=== PATIENT | male | born 1985 | race Caucasian/White ===

== ENCOUNTER → 2018-02-15 | Outpatient (CLI) | payer OTHER ==
--- NOTE | 2018-02-15 11:39 | FL ---
EXAMINATION TYPE: FL UGI air DATE OF EXAM: 02/15/2018 11:33 AM COMPARISON: NONE CLINICAL HISTORY: R13.10 Dysphagia Upper GI examination was performed according to the air contrast technique. Barium and effervescent crystal was swallowed without difficulty or delay. Esophageal peristalsis and motility are within normal limits. There is apparent luminal narrowing at the C4 level involving the hypopharynx. Direct visualization is recommended. No intraluminal masses s een within the remainder of the esophagus. Small sliding-type hiatal hernia is detected. No evidence for gastroesophageal reflux or esophagitis at this time. The stomach has a normal appearance in terms of its size, shape and location. No gastric filling defects or ulcer craters are seen. The duodena l bulb and sweep are also free of intraluminal lesion or ulcer crater. IMPRESSION: 1.There is apparent luminal narrowing at the C4 level involving the hypopharynx. Direct visualization is recommended. 2.Small sliding-type hiatal hernia is detected.
== END ==
LOC: RADFLWHC 10:41
PROVIDERS: ATTEND Family Medicine
DX: K44.9 Diaphragmatic hernia without obstruction or gangrene (principal)
CPT/HCPCS: 74246

== ENCOUNTER → 2018-03-09 | Outpatient (CLI) | payer OTHER ==
--- NOTE | 2018-03-09 20:09 | CONS ---
CONSULTATION DATE OF SERVICE: 03/09/2018 32-year-old gentleman has been evaluated in [facility] for possible obstructive sleep apnea-hypopnea syndrome and significant excessive daytime sleepiness. HISTORY OF PRESENT ILLNESS/SLEEP WAKE EVALUATION: SLEEP SCHEDULE: Patient recently sleeps from about midnight only until 2:30 a.m. because he started his work very yearly and on his days off, he sleeps from 11:00 p.m. to 8:00 am or even longer to replace his insufficient amount of sleep. DURING SLEEP: He snores. He has loud snoring. He has witnessed episodes of stopped breathing during the sleep. He grinds his teeth, wakes up with dry mouth, panic attacks, restless legs, sweating. DURING THE DAY/SLEEP WAKE EVALUATION: In the morning, he wakes up tired, has difficulties to pay attention, falling asleep during the day, worries about sleep, has problems with memory, concentration, irritability, depression, anxiety, sexual dysfunction. Bell[place] Sleepiness Scale is significantly increased to 19. FALLING ASLEEP: Sometimes he has problem with falling asleep, although no TV in bedroom. He sleeps on the side position. His weight changed significantly, 5 years ago it was around 240 pounds and then he increased to 330 pounds 1 year ago and then he lost down to 240 pounds and then he increased again to 286. He wakes up from sleep every 2 hours and he needs to go to the bathroom. No history of hypnagogic hallucinations, sleep paralysis or cataplexy. PAST MEDICAL HISTORY: Past medical history of back problems, hypertension. MEDICATIONS: Adderall 30 mg daily in the morning and medications for the blood pressure patient does not remember the name. PAST SURGICAL HISTORY: None. SOCIAL HISTORY: Positive for smoking up to 3 packs a day for 25 years. Alcohol consumption occasional. FAMILY HISTORY: Diabetes and cancer. REVIEW OF SYSTEMS: Awakenings from sleep, significant excessive daytime sleepiness. The patient may fall asleep any time and sometimes has history of falling asleep even during conversation. PHYSICAL EXAM: gentleman without distress. BP 152/84, HR 88, RR 16, height 5 feet 9 inches. Weight 285. Body mass index 42. Temperature 97.9. Oxygen saturation room air 97%. HEENT: Oropharynx moderately low position of soft palate. Wide pillars. Neck 19 inches in circumference. ABDOMEN: Obese. Neck Supple, no JVD. Thyroid is not palpable. LUNGS Clear to percussion and to auscultation. Good air exchange. No wheezing or rhonchi. HEART S1, S2 regular. No murmurs, gallops, or rubs. ABDOMEN Soft and nontender. Bowel sounds are present. No organomegaly appreciated. EXTREMITIES No clubbing or cyanosis. COAL SHOVELER Awake, alert, and oriented X3. Cranial nerves 2 to 7 intact. There is no fasciculation or atrophy. noted. No focal deficits observed. IMPRESSION: 1. Snoring, multiple awakenings from sleep, witnessed episodes of stopped breathing during the sleep. Wide neck, sleepiness, obstructive sleep apnea-hypopnea syndrome. 2. Irregular sleep schedule with some nights of insufficient sleep, episodes of severe excessive daytime sleepiness. 3. Severe excessive daytime sleepiness with Bellmore Sleepiness Scale of 19 indicate necessity to include hypersomnia in differential diagnosis. No history of hypnagogic hallucinations. No history of cataplexy. 4. Obesity. 5. Back problems. 6. Hypertension. 7. Smoker for about 75 pack years. PLAN: 1. Polysomnography for evaluation of patient's breathing during sleep. 2. CPAP/BiPAP titration if sleep study confirms obstructive sleep apnea-hypopnea syndrome. 3. Preferable position during sleep on the side. 4. No driving if patient feels any sleepiness. 5. I will see patient for follow up visit to explain results of testing and following plan. Thank you very much for referring this patient for consultation. Sincerely, Jose Miguel Flood MD, PhD, FAASM Diplomat of [place] [employer] [place] [employer] Distribution Associate of [facility] MMODL / IJN: [id number] /
== END ==
LOC: SLEEP 15:28
PROVIDERS: ATTEND Internal Medicine
DX: G47.33 Obstructive sleep apnea (adult) (pediatric) (principal); E66.9 Obesity, unspecified; I10 Essential (primary) hypertension; R29.898 Other symptoms and signs involving the musculoskeletal system; F17.200 Nicotine dependence, unspecified, uncomplicated; Z79.899 Other long term (current) drug therapy
CPT/HCPCS: 99211

== ENCOUNTER → 2018-03-09 | Day surgery (SDC) | payer OTHER ==
[2018-03-07 15:59] VITALS: BMI 39.0
[~2018-03-09] MED LIST: HYDROmorphone 1 MG/ML 1 ML SYRINGE IVP PRN; LACTATED RINGERS 1,000 ML IV SCH; LIDOCAINE 1% 20 ML VIAL (10MG/ML) FOR IV START INTRADERMA PRN; LIDOCAINE 1% INJ 10MG/ML (20 ML MDV) ONE; ONDANSETRON 4 MG/2 ML VIAL IVP PRN; PROPOFOL 10 MG/ML 20 ML VIAL IV ONE; fentaNYL (PF) 50 MCG/ML 2 ML AMP ONE
[2018-03-09 09:18] VITALS: RESP 16; TEMP 98.4
--- NOTE | 2018-03-09 11:00 | P.PCN ---
Date of Procedure: 03/09/18 Procedure(s) Performed: Procedure: Esophagogastroduodenoscopy and biopsy. Preoperative diagnosis: Dysphagia and abnormal upper GI study. Postoperative diagnosis: 1. Small sliding hiatal hernia with no obvious esophagitis or compared reflux disease. 2. No abnormality in the hypopharynx to correspond to the finding on upper GI. 3. Mild gastritis and duodenitis. 4. Multiple biopsies obtained from the duodenum, antrum and esophagus. Preparation and sedation: Was provided by anesthesia. Brief clinical history: The patient is a 32-year-old male who has been troubled with a globus kind sensation in his throat and difficulty swallowing for the last 6 months or so. An upper GI performed last month showed narrowing in the hypopharynx at the level of C4. Endoscopy was recommended by radiology. The patient has no weight loss or other alarm symptoms. Procedure: With the patient on his left lateral decubitus position and after informed consent and adequate sedation, the Olympus-GIF 160 video upper endoscope was used and was advanced under direct vision through the cricopharyngeus down the esophagus. Attention was paid to the area of the hypopharynx which showed narrowing on the barium swallow. No abnormalities were noted. The esophagus appeared healthy with no obvious erosions, ulcers, strictures or Yoon's esophagus. GE junction was around 42-43 cm from the incisors and there was a small sliding hiatal hernia. The endoscope was then passed into the stomach which was insufflated with air and inspected in detail including the retroflex view in the cardia. There was some mottling and erythema in the antrum but no ulcers or erosions. Pyloric channel did not show any ulcers. Duodenal bulb, post bulbar area and descending duodenum showed some erythema but no ulcers, erosions or bleeding. I obtained biopsies from the duodenum, antrum and esophagus then the endoscope was withdrawn. The patient tolerated the procedure well. Plan: The patient was reassured. Will await biopsy results. The patient is having an evaluation for possible sleep apnea as well. I discussed dietary measures and weight management and further plans can be made based on his course. I will be happy to see in the office if his symptoms persist.
[2018-03-09 11:16] VITALS: BP 133/100; PULSE 87
== END | disposition home or self-care (01) ==
LOC: ORWHC2ENDO 08:24
DX: K29.50 Unspecified chronic gastritis without bleeding (principal); K44.9 Diaphragmatic hernia without obstruction or gangrene; K29.80 Duodenitis without bleeding; I10 Essential (primary) hypertension; K20.9 Esophagitis, unspecified; Z87.891 Personal history of nicotine dependence; Z79.899 Other long term (current) drug therapy
CPT/HCPCS: 88305; 43239; J2001; J3010; J2704

== ENCOUNTER → 2018-03-30 | Outpatient (CLI) | payer OTHER ==
--- NOTE | 2018-03-30 10:26 | XR ---
EXAMINATION TYPE: XR lumbar spine 2 or 3V DATE OF EXAM: 03/30/2018 COMPARISON: None HISTORY: Pain TECHNIQUE: Three-view lumbar spine FINDINGS: Mild degenerative disc changes present L5-S1 and posteriorly at L4-5. Vertebral body alignm ent is normal. Vertebral body heights are preserved. Remaining disc spaces are preserved. There 5 lumbar-type vertebral bodies. The pedicles are intact. IMPRESSION: 1. Mild degenerative disc changes L4-5 L5-S1.
== END ==
LOC: RADXRMAIN 09:19
PROVIDERS: ATTEND Family Medicine
DX: M51.37 Other intervertebral disc degeneration, lumbosacral region (principal)
CPT/HCPCS: 72100

== ENCOUNTER 2018-08-17 12:37 | Emergency (ER) | payer OTHER ==
[2018-08-17 13:06] VITALS: PULSE 62; TEMP 98.2
--- NOTE | 2018-08-17 13:24 | ED ---
General Adult HPI - General Chief complaint: Abdominal Pain Stated complaint: Poss hernia-[facility] Time Seen by Provider: 08/17/18 13:10 Source: patient Mode of arrival: ambulatory Limitations: no limitations - History of Present Illness Initial comments: Dictation was produced using [employer] dictation software. please excuse any grammatical, word or spelling errors. Chief Complaint: 32-year-old male presents with chief complaint of abdominal pain. History of Present Illness: 32-year-old male. Today at work he was lifting 100 pound pipe. He states that during that activity he felt a immediate pain in his anterior abdomen. Patient denies any medical problems except for hypertension. Patient is known history of hernia. He states the pain is located to his umbilical area. Patient was seated at [employer]. He was told to come to the emergency department or further issues regarding his abdominal pain. Patient denies any nausea or vomiting. The ROS documented in this emergency department record has been reviewed and confirmed by me. Those systems with pertinent positive or negative responses have been documented in the HPI. All other systems are other negative and/or noncontributory. PHYSICAL EXAM: General Impression: Alert and oriented x3, not in acute distress HEENT: Normocephalic atraumatic, extra-ocular movements intact, pupils equal and reactive to light bilaterally, mucous membranes moist. Cardiovascular: Heart regular rate and rhythm, S1&S2 audible, no murmurs, rubs or gallops Chest: Lungs clear to auscultation bilaterally, no rhonchi, no wheeze, no rales Abdomen: Umbilical abdominal wall defect with Bowel. There does not appear to be any protruding organs from the umbilical wall defect, there is mild erythema of the overlying skin Musculoskeletal: Pulses present and equal in all extremities, no peripheral edema Motor: no focal deficits noted Neurological: CN II-XII grossly intact, no focal motor or sensory deficits noted Skin: Intact with no visualized rashes Psych: Normal affect and mood ED course: 32-year-old male presents with concern for umbilical hernia. Vital signs upon arrival are within acceptable limits. His examination is not suggestive of incarcerated or strangulate hernia. - Related Data Home Medications Medication Instructions Recorded Confirmed Dextroamphetamine/Amphetamine 30 mg PO DAILY 08/17/18 08/17/18 [Dextroamp-Amphetamin 30 mg Tab] FLUoxetine HCL [PROzac] 20 mg PO DAILY 08/17/18 08/17/18 Metoprolol Succinate (ER) [Toprol 100 mg PO DAILY 08/17/18 08/17/18 Xl] amLODIPine BESYLATE/BENAZEPRIL 1 tab PO DAILY 08/17/18 08/17/18 [amLODIPine BESYLATE/BENAZEPRIL 5-20 MG] Allergies Allergy/AdvReac Type Severity Reaction Status Date / Time No Known Allergies Allergy Verified 08/17/18 13:53 Review of Systems ROS Statement: Those systems with pertinent positive or pertinent negative responses have been documented in the HPI. ROS Other: All systems not noted in ROS Statement are negative. Past Medical History Past Medical History: Hypertension Additional Past Medical History / Comment(s): "feels like something stuck in my throat"; has narcolepsy gene; having sleep studies done History of Any Multi-Drug Resistant Organisms: MRSA Date of last positivie culture/infection: 06/01/18 MDRO Source:: Right Foot Past Surgical History: No Surgical Hx Reported Additional Past Anesthesia/Blood Transfusion Reaction / Comment(s): no anesthesia Past Psychological History: No Psychological Hx Reported Smoking Status: Current every day smoker Past Alcohol Use History: None Reported Past Drug Use History: None Reported - Past Family History Father Family Medical History: Cancer Additional Family Medical History / Comment(s): throat CA General Exam Limitations: no limitations Course Vital Signs 08/17/18 13:03 Temperature 98.2 F Pulse Rate 62 Respiratory 18 Rate Blood Pressure 130/83 O2 Sat by Pulse 99 Oximetry Medical Decision Making - Lab Data Result diagrams: 08/17/18 13:37 Lab Results 08/17/18 Range/Units 13:37 Sodium 139 (137-145) mmol/L Potassium 4.7 (3.5-5.1) mmol/L Chloride 107 (98-107) mmol/L Carbon Dioxide 24 (22-30) mmol/L Anion Gap 8 mmol/L BUN 18 (9-20) mg/dL Creatinine 0.77 (0.66-1.25) mg/dL Est GFR (CKD-EPI)AfAm >90 (>60 ml/min/1.73 sqM) Est GFR (CKD-EPI)NonAf >90 (>60 ml/min/1.73 sqM) Glucose 95 (74-99) mg/dL Calcium 9.9 (8.4-10.2) mg/dL Disposition Clinical Impression: Hernia Disposition: HOME SELF-CARE Condition: Good Instructions (If sedation given, give patient instructions): Umbilical Hernia (ED) Additional Instructions: Go directly to Dr. Hendrix's office Is patient prescribed a controlled substance at d/c from ED?: No Referrals: eZchariah Hendrix MD [STAFF PHYSICIAN] - 1-2 days Time of Disposition: 15:29
[2018-08-17 14:00] LABS: Anion Gap 8 mmol/L; Blood Urea Nitrogen 18 mg/dL (9-20); Calcium 9.9 mg/dL (8.4-10.2); Carbon Dioxide 24 mmol/L (22-30); Chloride 107 mmol/L (98-107); Glucose 95 mg/dL (74-99); Sodium 139 mmol/L (137-145)
[2018-08-17 14:15] LABS: Potassium 4.7 mmol/L (3.5-5.1)
--- NOTE | 2018-08-17 15:00 | CT ---
EXAMINATION TYPE: CT abdomen pelvis w con DATE OF EXAM: 08/17/2018 COMPARISON: None HISTORY: periumbilical pain and history of umbilical hernia. CT DLP: 1690.9 mGycm Automated exposure control for dose reduction was used. CONTRAST: CT scan of the abdomen pelvis is performed with IV Contrast, patient injected with 100 mL of Isovue 3 00. FINDINGS- LUNG BASES- No significant abnormality is appreciated. LIVER/GB-the gallbladder is distended. There appears to be a calcification near the neck of the gallb ladder may represent wall calcification or tiny stone and could be correlated with ultrasound. Gallbl adder measures 10 cm in greatest length. PANCREAS- No gross abnormality is seen. SPLEEN- No gross abnormality is seen. ADRENALS- No gross abnormality is seen. KIDNEYS/BLADDER- no hydronephrosis nephrolithiasis or renal mass. BOWEL-bowel gas pattern nonspecific. Normal appendix. LYMPH NODES- No greater than 1cm abdominal or pelvic lymph nodes areappreciated. OSSEOUS STRUCTURES-hypertrophic change of the spine noted. Multilevel Schmorl's nodes are noted conge nital deformity of superior endplate L5. Bilateral spondylolysis of L5. OTHER- there is an anterior abdominal wall periumbilical hernia containing peritoneal fat. There addie ears to be increased attenuation suggestive of inflammation within the hernia sac mental infarction o r active inflammation within the hernia sac in the differential diagnosis . Calcifications in the pe lvis are likely vascular. Incidental note is made of a urachal tract remnant. IMPRESSION- 1. Anterior abdominal wall hernia containing peritoneal fat which demonstrates inflammatory changes w ithin the fat. Active inflammation suspected. Omental infarction and intra-abdominal fat strangulatio n in the differential diagnosis. 2. Gallbladder hydrops. There appears to be linear calcification near the neck of the gallbladder whi ch may be within the wall the gallbladder rather than representing tiny stones. This would be more ac curately assessed with ultrasound. Right upper quadrant ultrasound recommended.
[2018-08-17 15:36] VITALS: BP 132/65; RESP 20
== END 2018-08-17 15:34 | disposition home or self-care (01) ==
LOC: EC 12:37
DX: K43.9 Ventral hernia without obstruction or gangrene (principal); I10 Essential (primary) hypertension; F17.200 Nicotine dependence, unspecified, uncomplicated; Z86.14 Personal history of Methicillin resistant Staphylococcus aureus infection; Z79.899 Other long term (current) drug therapy
CPT/HCPCS: 82075; 36415; 80048; 74177; 99284; Q9967

== ENCOUNTER 2019-04-28 01:46 | Emergency (ER) | payer OTHER ==
[2019-04-28 02:00] VITALS: RESP 18
[2019-04-28] MEDS ORDERED: BUPIVACAIN-EPI 0.5%-1:200,000 30 ML VIAL SQ STA (02:03)
--- NOTE | 2019-04-28 02:12 | ED ---
ENT HPI - General Chief complaint: Dental/Oral Stated complaint: Dental pain Time Seen by Provider: 04/28/19 02:02 Source: patient Mode of arrival: ambulatory Limitations: no limitations - History of Present Illness Initial comments: Patient is a 33-year-old male with history of poor dentition is presenting to emergency Department with a chief complaint of a fractured tooth. Patient reports he was eating food when he noticed a fracture on tooth #7. Patient reports sudden onset of pain. Patient reports he is scheduled to have the tooth extracted exactly 1 week from now. Patient denies any nausea or vomiting. Patient denies any radiation of the pain. Patient denies taking medication to alleviate his symptoms. Patient does report an palpation or blunt of air on tooth exacerbates the pain. Patient denies facial swelling. - Related Data Home Medications Medication Instructions Recorded Confirmed Dextroamphetamine/Amphetamine 30 mg PO QAM 08/17/18 08/21/18 [Dextroamp-Amphetamin 30 mg Tab] FLUoxetine HCL [PROzac] 20 mg PO QAM 08/17/18 08/21/18 Metoprolol Succinate (ER) [Toprol 100 mg PO QAM 08/17/18 08/21/18 Xl] amLODIPine BESYLATE/BENAZEPRIL 1 tab PO QAM 08/17/18 08/21/18 [amLODIPine BESYLATE/BENAZEPRIL 5-20 MG] Allergies Allergy/AdvReac Type Severity Reaction Status Date / Time amoxicillin AdvReac Rash/Hives Verified 04/28/19 02:00 Review of Systems ROS Statement: Those systems with pertinent positive or pertinent negative responses have been documented in the HPI. ROS Other: All systems not noted in ROS Statement are negative. Past Medical History Past Medical History: Hypertension Additional Past Medical History / Comment(s): "feels like something stuck in my throat", states has narrowing of throat, has narcolepsy, having sleep studies done History of Any Multi-Drug Resistant Organisms: MRSA Date of last positivie culture/infection: 06/01/18 MDRO Source:: Right Foot Past Surgical History: No Surgical Hx Reported Additional Past Surgical History / Comment(s): EGD Past Anesthesia/Blood Transfusion Reactions: No Reported Reaction Additional Past Anesthesia/Blood Transfusion Reaction / Comment(s): no anesthesia Past Psychological History: Depression Smoking Status: Current every day smoker Past Alcohol Use History: None Reported Past Drug Use History: None Reported - Past Family History Father Family Medical History: Cancer Additional Family Medical History / Comment(s): throat CA General Exam Limitations: no limitations General appearance: alert, in no apparent distress Head exam: Present: atraumatic, normocephalic, normal inspection Eye exam: Present: normal appearance, PERRL, EOMI Pupils: Present: normal accommodation ENT exam: Present: normal exam, normal oropharynx (Partial Tooth fracture on number 7. No other oral lesions noted. No erythema along the gumline.), mucous membranes moist, other (No facial swelling.) Neck exam: Present: normal inspection, full ROM Respiratory exam: Present: normal lung sounds bilaterally Cardiovascular Exam: Present: regular rate, normal rhythm, normal heart sounds Extremities exam: Present: normal inspection, full ROM Back exam: Present: normal inspection, full ROM Neurological exam: Present: alert, oriented X3 Psychiatric exam: Present: normal affect, normal mood Skin exam: Present: warm, dry, intact, normal color Course Vital Signs 04/28/19 04/28/19 01:59 03:29 Temperature 98.6 F 98 F Pulse Rate 67 97 Respiratory 18 18 Rate Blood Pressure 165/94 133/83 O2 Sat by Pulse 97 98 Oximetry Medical Decision Making - Medical Decision Making Patient 33-year-old male presenting to emergency Department with a chief complaint of a fractured tooth. On exam patient does have a partially fractured tooth #7. No other oral lesions noted. No signs of infection. Patient given a right inferior orbital nerve block. Bupivacaine used. Patient given a Tylenol 3 starter pack. He has an appointment scheduled to see his dentist in exactly 1 week for extraction of the same tooth. Strict return parameters were thoroughly discussed with patient was understanding and agreeable. Case discussed with physician. Disposition Clinical Impression: Fractured tooth Disposition: HOME SELF-CARE Condition: Stable Instructions (If sedation given, give patient instructions): Toothache (ED) Additional Instructions: Please follow up with a dentist. Please return to emergency department if symptoms worsen. Is patient prescribed a controlled substance at d/c from ED?: No Referrals: Kadi Burch MD [Primary Care Provider] - 1-2 days Time of Disposition: 03:15
[2019-04-28] MEDS ORDERED: ACET/COD 300 MG/30 MG STARTER PACK 6 TAB BTL PO STA (03:15)
[2019-04-28 03:31] VITALS: BP 133/83; PULSE 97; TEMP 98
== END 2019-04-28 03:31 | disposition home or self-care (01) ==
LOC: EC 01:46
DX: S02.5XXA Fracture of tooth (traumatic), initial encounter for closed fracture (principal); F32.9 Major depressive disorder, single episode, unspecified; I10 Essential (primary) hypertension; F17.200 Nicotine dependence, unspecified, uncomplicated; Z79.899 Other long term (current) drug therapy; Z88.0 Allergy status to penicillin; X58.XXXA Exposure to other specified factors, initial encounter
CPT/HCPCS: 64400; 99282

== ENCOUNTER 2019-04-29 03:22 | Emergency (ER) | payer OTHER ==
[2019-04-29] MEDS ORDERED: HYDROcodone/APAP 7.5-325MG 1 EACH TAB PO ONE (03:55)
[2019-04-29] MEDS ORDERED: KETOROLAC 30 MG/ML 1 ML VIAL IM STA (03:59)
[2019-04-29] MEDS ORDERED: FAMOTIDINE 20 MG TAB PO STA (04:00)
--- NOTE | 2019-04-29 04:01 | ED ---
ENT HPI - General Chief complaint: Dental/Oral Stated complaint: Dental Pain Time Seen by Provider: 04/29/19 03:40 Source: patient, family Mode of arrival: ambulatory Limitations: no limitations - History of Present Illness Initial comments: Patient is a 33-year-old male with history of poor dentition specific to emergency Department with a chief complaint of the pain. Patient states he was in the ED yesterday for the same reason was diagnosed with a fractured tooth. Patient was given a dental block. Patient reports it worked well until he woke up this morning at noon and the pain returned. Patient reports taking multiple ibuprofens along with Tylenol 3 but shows minimal improvement. Patient states his gums are sore from the shot he received yesterday and will write her for oral pills. Patient is also concerned for dental infection. - Related Data Home Medications Medication Instructions Recorded Confirmed Dextroamphetamine/Amphetamine 30 mg PO QAM 08/17/18 08/21/18 [Dextroamp-Amphetamin 30 mg Tab] FLUoxetine HCL [PROzac] 20 mg PO QAM 08/17/18 08/21/18 Metoprolol Succinate (ER) [Toprol 100 mg PO QAM 08/17/18 08/21/18 Xl] amLODIPine BESYLATE/BENAZEPRIL 1 tab PO QAM 08/17/18 08/21/18 [amLODIPine BESYLATE/BENAZEPRIL 5-20 MG] Previous Rx's Medication Instructions Recorded Clindamycin [Cleocin] 150 mg PO Q6H #40 capsule 04/29/19 HYDROcodone/APAP 7.5-325MG [[place] 1 tab PO BID 3 Days #6 tab 04/29/19 7.5-325] Allergies Allergy/AdvReac Type Severity Reaction Status Date / Time amoxicillin AdvReac Rash/Hives Verified 04/29/19 03:39 Review of Systems ROS Statement: Those systems with pertinent positive or pertinent negative responses have been documented in the HPI. ROS Other: All systems not noted in ROS Statement are negative. Past Medical History Past Medical History: Hypertension Additional Past Medical History / Comment(s): "feels like something stuck in my throat", states has narrowing of throat, has narcolepsy, having sleep studies done History of Any Multi-Drug Resistant Organisms: MRSA Date of last positivie culture/infection: 06/01/18 MDRO Source:: Right Foot Past Surgical History: No Surgical Hx Reported Additional Past Surgical History / Comment(s): EGD Past Anesthesia/Blood Transfusion Reactions: No Reported Reaction Additional Past Anesthesia/Blood Transfusion Reaction / Comment(s): no anesthesia Past Psychological History: Depression Smoking Status: Current every day smoker Past Alcohol Use History: None Reported Past Drug Use History: None Reported - Past Family History Father Family Medical History: Cancer Additional Family Medical History / Comment(s): throat CA General Exam Limitations: no limitations General appearance: alert, in no apparent distress Head exam: Present: atraumatic, normocephalic, normal inspection Eye exam: Present: normal appearance Pupils: Present: normal accommodation ENT exam: Present: normal exam, mucous membranes moist, TM's normal bilaterally, normal external ear exam. Absent: normal oropharynx (Fractured tooth #7. Surrounding gumline erythema but no signs of periapical abscess.) Neck exam: Present: normal inspection, full ROM Respiratory exam: Present: normal lung sounds bilaterally Cardiovascular Exam: Present: regular rate, normal rhythm, normal heart sounds Extremities exam: Present: normal inspection, full ROM Back exam: Present: normal inspection, full ROM Neurological exam: Present: alert, oriented X3 Psychiatric exam: Present: normal affect, normal mood Skin exam: Present: warm, dry, intact, normal color Course Vital Signs 04/29/19 03:36 Temperature 98.1 F Pulse Rate 72 Respiratory 20 Rate Blood Pressure 161/103 O2 Sat by Pulse 98 Oximetry Medical Decision Making - Medical Decision Making Patient is a 33-year-old male presenting to emergency Department with chief complaint of dental pain. On exam patient has fractured partially tooth #7. Compared to yesterday, now there is gumline erythema but no signs of the periapical abscess. Suspect the patient is developing an early dental infection. Patient will be treated with antibiotics. Patient given Blakeslee here and discharged with 6 more tablets of Blakeslee. Patient also given Pepcid in the ED. Dental block was offered patient declined because the gumline is sore from the dental block he received yesterday. Patient has an appointment with his dentist in 6 days. Strict return parameters were thoroughly discussed patient was understanding and agreeable. Case discussed with physician. Disposition Clinical Impression: Dental implant pain, Fractured tooth Disposition: HOME SELF-CARE Condition: Stable Instructions (If sedation given, give patient instructions): Toothache (ED) Additional Instructions: Please take prescribed medication as directed. Please follow up with a dentist. Please return to emergency department if symptoms worsen. Prescriptions: Clindamycin [Cleocin] 150 mg PO Q6H #40 capsule HYDROcodone/APAP 7.5-325MG [[place] 7.5-325] 1 tab PO BID 3 Days #6 tab Is patient prescribed a controlled substance at d/c from ED?: No Referrals: Kadi Burch MD [Primary Care Provider] - 1-2 days Time of Disposition: 04:00
[2019-04-29 04:12] VITALS: BP 143/77; PULSE 87; RESP 18; TEMP 97.7
== END 2019-04-29 04:12 | disposition home or self-care (01) ==
LOC: EC 03:22
DX: S02.5XXA Fracture of tooth (traumatic), initial encounter for closed fracture (principal); T85.848A Pain due to other internal prosthetic devices, implants and grafts, initial encounter; Z91.19 Patient's noncompliance with other medical treatment and regimen; F32.9 Major depressive disorder, single episode, unspecified; I10 Essential (primary) hypertension; F17.200 Nicotine dependence, unspecified, uncomplicated; Z79.899 Other long term (current) drug therapy; Z88.0 Allergy status to penicillin; X58.XXXA Exposure to other specified factors, initial encounter
CPT/HCPCS: 99282; 96372; J1885

== ENCOUNTER → 2019-06-01 | Outpatient (CLI) | payer SELFPAY ==
--- NOTE | 2019-06-02 14:40 | US ---
EXAMINATION TYPE: US scrotum with doppler. Grayscale and color Doppler Duplex imaging performed of claudy fry scrotum. DATE OF EXAM: 06/01/2019 COMPARISON: CT 08/17/2018 CLINICAL HISTORY: N50.89 testicular mass. Patient is a poor historian. Known hernia per patient EXAM MEASUREMENTS: TESTICLES: Right Testicle: 4.1 x 2.3 x 3.2 cm Left Testicle: 4.2 x 2.2 x 2.8 cm EPIDIDYMIS HEAD: Right Epididymis: Unable to completely visualize due to possible hernia Left Epididymis: 1.5 cm Doppler performed to assess for testicular vascularity; good bilateral color flow and waveforms are s een. There is no evidence of testicular torsion. Presence of hydroceles: Yes, mild amount of fluid visualized bilaterally. Presence of varicoceles: None Possible hernia with peristalsing bowel visualized lateral to the right testicle. IMPRESSION: Trace bilateral hydroceles. Possible hernia seen lateral to the right testicle obscuring the right epididymis. Correlate clinically for reducibility.
== END | disposition home or self-care (01) ==
LOC: RADUSWWP 16:40
PROVIDERS: ATTEND Family Medicine
DX: N50.89 Other specified disorders of the male genital organs (principal)
CPT/HCPCS: 76870; 93975

== ENCOUNTER 2020-03-13 09:08 | Emergency (ER) | payer OTHER ==
[2020-03-13 09:17] VITALS: BP 137/88; PULSE 76; RESP 18; TEMP 97.2
--- NOTE | 2020-03-13 09:30 | ED ---
General Adult HPI - General Chief complaint: Recheck/Abnormal Lab/Rx Stated complaint: Covid Exposure Time Seen by Provider: 03/13/20 09:18 Source: patient, RN notes reviewed Mode of arrival: ambulatory Limitations: no limitations - History of Present Illness Initial comments: 34-year-old male presents emergency Department with chief complaint of covid exposure. Patient denies any current symptoms. Patient states that his girlfriend was exposed to known positive. Patient's girlfriend had rapid test which was negative though they told her the rapid test was not very active. Patient denies any fever cough congestion chills nausea and diarrhea constipation no loss of smaller taste. Patient states she is worried because his son has severe asthma. - Related Data Home Medications Medication Instructions Recorded Confirmed Dextroamphetamine/Amphetamine 30 mg PO QAM 08/17/18 08/21/18 [Dextroamp-Amphetamin 30 mg Tab] FLUoxetine HCL [PROzac] 20 mg PO QAM 08/17/18 08/21/18 Metoprolol Succinate (ER) [Toprol 100 mg PO QAM 08/17/18 08/21/18 Xl] amLODIPine BESYLATE/BENAZEPRIL 1 tab PO QAM 08/17/18 08/21/18 [amLODIPine BESYLATE/BENAZEPRIL 5-20 MG] Previous Rx's Medication Instructions Recorded Clindamycin [Cleocin] 150 mg PO Q6H #40 capsule 04/29/19 HYDROcodone/APAP 10-325MG [[place] 1 tab PO BID #6 tab 04/29/19 10-325] HYDROcodone/APAP 10-325MG [[place] 1 tab PO Q6H PRN #6 tab 04/29/19 10-325] Allergies Allergy/AdvReac Type Severity Reaction Status Date / Time amoxicillin AdvReac Rash/Hives Verified 03/13/20 09:16 Review of Systems ROS Statement: Those systems with pertinent positive or pertinent negative responses have been documented in the HPI. ROS Other: All systems not noted in ROS Statement are negative. Past Medical History Past Medical History: Hypertension Additional Past Medical History / Comment(s): states has narrowing of throat, has narcolepsy, History of Any Multi-Drug Resistant Organisms: MRSA Date of last positivie culture/infection: 06/01/18 MDRO Source:: Right Foot Past Surgical History: No Surgical Hx Reported Additional Past Surgical History / Comment(s): EGD Past Anesthesia/Blood Transfusion Reactions: No Reported Reaction Additional Past Anesthesia/Blood Transfusion Reaction / Comment(s): no anesthesia Past Psychological History: Depression Smoking Status: Current every day smoker Past Alcohol Use History: None Reported Past Drug Use History: Marijuana - Past Family History Father Family Medical History: Cancer Additional Family Medical History / Comment(s): throat [place] General Exam Limitations: no limitations General appearance: alert, in no apparent distress Head exam: Present: atraumatic, normocephalic, normal inspection Eye exam: Present: normal appearance, PERRL, EOMI. Absent: scleral icterus, conjunctival injection, periorbital swelling ENT exam: Present: normal exam, normal oropharynx, mucous membranes moist Neck exam: Present: normal inspection. Absent: tenderness, meningismus, lymphadenopathy Respiratory exam: Present: normal lung sounds bilaterally. Absent: respiratory distress, wheezes, rales, rhonchi, stridor Cardiovascular Exam: Present: regular rate, normal rhythm, normal heart sounds. Absent: systolic murmur, diastolic murmur, rubs, gallop, clicks Course Vital Signs 03/13/20 09:14 Temperature 97.2 F L Pulse Rate 76 Respiratory 18 Rate Blood Pressure 137/88 O2 Sat by Pulse 98 Oximetry Medical Decision Making - Medical Decision Making Patient has been pending coronavirus testing. Disposition Clinical Impression: Lab test negative for COVID-19 virus, Exposure to COVID-19 virus Disposition: HOME SELF-CARE Condition: Stable Additional Instructions: Please return to the Emergency Department if symptoms worsen or any other concerns. Is patient prescribed a controlled substance at d/c from ED?: No Referrals: Kadi Burch MD [Primary Care Provider] - 1-2 days Time of Disposition: 09:30
== END 2020-03-13 09:54 | disposition home or self-care (01) ==
LOC: EC 09:08
DX: Z03.818 Encounter for observation for suspected exposure to other biological agents ruled out (principal); I10 Essential (primary) hypertension; G47.419 Narcolepsy without cataplexy; F32.9 Major depressive disorder, single episode, unspecified; F17.200 Nicotine dependence, unspecified, uncomplicated; Z79.899 Other long term (current) drug therapy; Z88.0 Allergy status to penicillin; Z86.14 Personal history of Methicillin resistant Staphylococcus aureus infection
CPT/HCPCS: 99283; U0003

== ENCOUNTER 2020-10-09 13:24 | Emergency (ER) | payer OTHER ==
[2020-10-09 13:35] VITALS: BP 145/77; PULSE 100; RESP 18; TEMP 98.3
== END 2020-10-09 14:50 | disposition left against medical advice (07) ==
LOC: EC 13:24
DX: Z53.21 Procedure and treatment not carried out due to patient leaving prior to being seen by health care provider (principal)
CPT/HCPCS: 87635; 99284; 99499

== ENCOUNTER 2020-10-23 01:19 | Emergency (ER) | payer OTHER ==
[2020-10-23 01:24] VITALS: BP 146/97; PULSE 96; RESP 22; TEMP 99.1
--- NOTE | 2020-10-23 02:23 | ED ---
ENT HPI - General Chief complaint: ENT Stated complaint: Neck Swelling Time Seen by Provider: 10/23/20 01:31 Source: patient Mode of arrival: ambulatory Limitations: no limitations - History of Present Illness Initial comments: Patient is a 35-year-old male presenting to emergency Department with complaints of a sore throat for the past 2 weeks. He states he feels like his tonsils are swollen. He denies any fevers or chills, no nausea or vomiting. He does have some referred pain towards his right ear. No dental pain. He has no further complaints at this time. Upon arrival to the ER his vitals are stable. - Related Data Home Medications Medication Instructions Recorded Confirmed Dextroamphetamine/Amphetamine 30 mg PO QAM 08/17/18 08/21/18 [Dextroamp-Amphetamin 30 mg Tab] FLUoxetine HCL [PROzac] 20 mg PO QAM 08/17/18 08/21/18 Metoprolol Succinate (ER) [Toprol 100 mg PO QAM 08/17/18 08/21/18 Xl] amLODIPine BESYLATE/BENAZEPRIL 1 tab PO QAM 08/17/18 08/21/18 [amLODIPine BESYLATE/BENAZEPRIL 5-20 MG] Previous Rx's Medication Instructions Recorded Clindamycin [Cleocin] 150 mg PO Q6H #40 capsule 04/29/19 HYDROcodone/APAP 10-325MG [[place] 1 tab PO BID #6 tab 04/29/19 10-325] HYDROcodone/APAP 10-325MG [[place] 1 tab PO Q6H PRN #6 tab 04/29/19 10-325] Amoxicillin/Potassium Clav 1 tab PO BID 10 Days #20 tab 10/23/20 [Augmentin 875-125 Tablet] predniSONE 50 mg PO DAILY #5 tab 10/23/20 Allergies Allergy/AdvReac Type Severity Reaction Status Date / Time amoxicillin AdvReac Rash/Hives Verified 10/09/20 13:32 Review of Systems ROS Statement: Those systems with pertinent positive or pertinent negative responses have been documented in the HPI. ROS Other: All systems not noted in ROS Statement are negative. Past Medical History Past Medical History: Hypertension Additional Past Medical History / Comment(s): states has narrowing of throat, has narcolepsy, History of Any Multi-Drug Resistant Organisms: MRSA Date of last positivie culture/infection: 06/01/18 MDRO Source:: Right Foot Past Surgical History: No Surgical Hx Reported Additional Past Surgical History / Comment(s): EGD Past Anesthesia/Blood Transfusion Reactions: No Reported Reaction Additional Past Anesthesia/Blood Transfusion Reaction / Comment(s): no anesthesia Past Psychological History: Anxiety, Bipolar, Depression Smoking Status: Current every day smoker Past Alcohol Use History: Occasional Past Drug Use History: Marijuana - Past Family History Father Family Medical History: Cancer Additional Family Medical History / Comment(s): throat [place] General Exam - General Exam Comments Initial Comments: GENERAL: Patient is well-developed and well-nourished. Patient is nontoxic and in no acute distress. HEAD: Atraumatic, normocephalic. EYES: Pupils equal round and reactive to light, extraocular movements intact, sclera anicteric, conjunctiva are normal. Eyelids were unremarkable. ENT: TMs normal, nares patent. Moist mucous membranes. Tonsils are swollen, right greater than left, erythematous, no exudate. Uvula is midline. No drooling, normal speech. NECK: Normal range of motion, supple without lymphadenopathy or JVD. LUNGS: Unlabored respirations. Breath sounds clear to auscultation bilaterally and equal. No wheezes rales or rhonchi. HEART: Regular rate and rhythm without murmurs, rubs or gallops. ABDOMEN: Soft, nontender, normoactive bowel sounds. No guarding, no rebound. No masses appreciated. : Deferred MUSCULOSKELETAL: Normal extremities with adequate strength and normal range of motion, no pitting or edema. No clubbing or cyanosis. NEUROLOGICAL: Patient is alert and oriented x 3. Motor and sensory are also intact. Cranial nerves II through XII grossly intact. Symmetrical smile. Normal speech, normal gait. PSYCH: Normal mood, normal affect. SKIN: Warm, Dry, normal turgor, no rashes or lesions noted. Limitations: no limitations Course Vital Signs 10/23/20 01:20 Temperature 99.1 F Pulse Rate 96 Respiratory 22 Rate Blood Pressure 146/97 O2 Sat by Pulse 97 Oximetry Medical Decision Making - Medical Decision Making Patient is a 35-year-old male here for tonsillitis for the past 2 weeks. Tonsils are swollen, right greater than left. Does not appear to be a tonsillar abscess at this time. Vital signs are stable. Patient will be started on antibiotics and steroids. First dose given here in the ER. If symptoms persist, recommend following up with his primary care physician as we do not have ENT coverage right now. Patient is in agreement with this plan of care. He is stable for discharge. Return parameters were discussed with the patient and he verbalized understanding. Case discussed with Dr. López. Disposition Clinical Impression: Tonsillitis Disposition: HOME SELF-CARE Condition: Stable Instructions (If sedation given, give patient instructions): Tonsillitis (ED) Additional Instructions: Please return to the Emergency Department if symptoms worsen or any other concerns. Take antibiotics as prescribed, finish entire course. Take steroids as prescribed. May take Tylenol or ibuprofen for discomfort. If symptoms persist, follow-up with your primary care physician. We do not have ENT coverage this week. Prescriptions: Amoxicillin/Potassium Clav [Augmentin 875-125 Tablet] 1 tab PO BID 10 Days #20 tab predniSONE 50 mg PO DAILY #5 tab Is patient prescribed a controlled substance at d/c from ED?: No Referrals: Kadi Burch MD [Primary Care Provider] - 1-2 days Time of Disposition: 02:41
[2020-10-23] MEDS ORDERED: AMOXIC-POT CLAV 875-125MG 1 EACH TAB PO STA (02:24)
[2020-10-23] MEDS ORDERED: methylPREDNISolone SOD SUCCI 125 MG/2 ML VIAL IM ONE (02:24)
== END 2020-10-23 02:53 | disposition home or self-care (01) ==
LOC: EC 01:19
DX: J03.90 Acute tonsillitis, unspecified (principal); I10 Essential (primary) hypertension; F31.9 Bipolar disorder, unspecified; F41.9 Anxiety disorder, unspecified; F17.200 Nicotine dependence, unspecified, uncomplicated; F12.90 Cannabis use, unspecified, uncomplicated; Z79.899 Other long term (current) drug therapy; Z79.52 Long term (current) use of systemic steroids; Z88.0 Allergy status to penicillin
CPT/HCPCS: 96372; 99283